=== PATIENT | female | born 1970 | race Caucasian/White ===

== ENCOUNTER 2022-11-05 17:11 | Inpatient (IN) | payer OTHER ==
[2022-11-05 17:28] VITALS: BMI 15.7
[2022-11-05] MEDS ORDERED: IBUPROFEN 400 MG TABLET (FP) PO PRN (17:57)
[2022-11-05] MEDS ORDERED: P-EPHED 60MG/TRIPROLIDI 2.5MG TABLET PO PRN (17:57)
[2022-11-05] MEDS ORDERED: BENZONATATE 200 MG CAPSULE PO PRN (17:57)
[2022-11-05] MEDS ORDERED: NALOXONE HCL 0.4 MG/ML VIAL IM PRN (17:57)
[2022-11-05] MEDS ORDERED: DICYCLOMINE HCL 10 MG CAPSULE PO PRN (17:57)
[2022-11-05] MEDS ORDERED: ONDANSETRON *ODT* 4 MG TABLET SL PRN (17:57)
[2022-11-05] MEDS ORDERED: NALOXONE HCL (KLOXXADO) 8 MG SPRAY NS PRN (17:57)
[2022-11-05] MEDS ORDERED: guaiFENesin 600 MG TABLET.ER (FP) PO PRN (17:57)
[2022-11-05] MEDS ORDERED: POLYETHYLENE GLYCOL (HEALTHYLAX) 3350 17 GM PACKET PO PRN (17:57)
[2022-11-05] MEDS ORDERED: NICOTINE POLACRILEX 2 MG GUM BUC PRN (17:57)
[2022-11-05] MEDS ORDERED: BISMUTH SUBSALICYLATE 524 MG/30 ML PO PRN (17:57)
[2022-11-05] MEDS ORDERED: MAG HYDROX/AL HYDROX/SIMETH 30 ML UNIT-DOSE CUP PO PRN (17:57)
[2022-11-05] MEDS ORDERED: LOPERAMIDE HCL 2 MG CAPSULE PO PRN (17:57)
[2022-11-05] MEDS ORDERED: MAGNESIUM HYDROX 2400MG/30ML ORAL SUSPENSION 30 ML CUP PO PRN (17:57)
[2022-11-05] MEDS ORDERED: BENZOCAINE/MENTHOL (CHLORASEPTIC ) LOZENGE MM PRN (17:57)
[2022-11-05] MEDS ORDERED: ALBUTEROL SO4 HFA INHALER IH PRN (18:00)
[2022-11-05] MEDS ORDERED: methylPREDNISolone 4 MG TABLET PO SCH (18:00)
[2022-11-05] MEDS ORDERED: cloNIDine HCL 0.1 MG TABLET PO PRN (18:01)
[2022-11-05] MEDS ORDERED: methylPREDNISolone 8 MG TABLET PO ONE (20:52)
[2022-11-05] MEDS ORDERED: MELATONIN 5 MG TABLETS PO SCH (22:00)
[2022-11-05] MEDS ORDERED: methylPREDNISolone 4 MG TABLET PO ONE (22:00)
[2022-11-05] MEDS: MONTELUKAST NA 10 MG TABLET PO SCH (23:10)
[2022-11-05] MEDS: THIAMINE HCL 100 MG TABLET (FP) PO SCH (23:11)
[2022-11-05] MEDS: METHOCARBAMOL 500 MG TABLET PO PRN (23:12)
[2022-11-05] MEDS: diazePAM 5 MG TABLET PO PRN (23:12)
[2022-11-05] MEDS: ALBUTEROL SO4 2.5/IPRATROPIUM 0.5 INH SOL 3 ML VIAL.NEB. NEB SCH (23:13)
[2022-11-05] MEDS: LIDOCAINE PATCH REMOVAL MC SCH (23:14)
[2022-11-06] MEDS: ALBUTEROL SO4 2.5/IPRATROPIUM 0.5 INH SOL 3 ML VIAL.NEB. NEB SCH ×3 (06:53→20:54)
[2022-11-06] MEDS ORDERED: methylPREDNISolone 4 MG TABLET PO ONE (10:00)
[2022-11-06] MEDS ORDERED: methaDONE HCL 10 MG TABLET (FOR DETOX USE ONLY) PO ONE (10:00)
[2022-11-06] MEDS: METHOCARBAMOL 500 MG TABLET PO PRN ×2 (10:15→17:01)
[2022-11-06] MEDS: PRENATAL VITAMINS W/ FOLIC ACID TABLET (FP) PO SCH (10:16)
[2022-11-06] MEDS: LIDOCAINE 5% TOPICAL PATCH TP SCH (10:16)
[2022-11-06] MEDS: diazePAM 5 MG TABLET PO PRN ×2 (10:17→17:01)
[2022-11-06] MEDS: NICOTINE 21 MG/24 HOURS TOPICAL PATCH TD SCH (10:23)
[2022-11-06] MEDS: IBUPROFEN 600 MG TABLET (FP) PO PRN (17:00)
[2022-11-06] MEDS: MIRTAZAPINE 15 MG TABLET (FP) PO SCH (22:24)
[2022-11-06] MEDS: NICOTINE 10 MG CARTRIDGE (INHALER) IH PRN (22:25)
[2022-11-06] MEDS: THIAMINE HCL 100 MG TABLET (FP) PO SCH (22:25)
[2022-11-06] MEDS: MONTELUKAST NA 10 MG TABLET PO SCH (22:25)
[2022-11-06] MEDS: ACETAMINOPHEN 325 MG TABLET (FP) PO PRN (22:26)
[2022-11-06] MEDS: LIDOCAINE PATCH REMOVAL MC SCH (22:47)
[2022-11-07] MEDS: ALBUTEROL SO4 2.5/IPRATROPIUM 0.5 INH SOL 3 ML VIAL.NEB. NEB SCH ×3 (08:04→16:17)
[2022-11-07] MEDS ORDERED: methylPREDNISolone 4 MG TABLET PO ONE (10:00)
[2022-11-07] MEDS: METHOCARBAMOL 500 MG TABLET PO PRN ×2 (10:17→22:01)
[2022-11-07] MEDS: diazePAM 5 MG TABLET PO PRN ×3 (10:17→22:01)
[2022-11-07] MEDS: NICOTINE 21 MG/24 HOURS TOPICAL PATCH TD SCH (10:18)
[2022-11-07] MEDS: LIDOCAINE 5% TOPICAL PATCH TP SCH (10:18)
[2022-11-07] MEDS: PRENATAL VITAMINS W/ FOLIC ACID TABLET (FP) PO SCH (10:19)
[2022-11-07] MEDS: NICOTINE 10 MG CARTRIDGE (INHALER) IH PRN (17:00)
[2022-11-07] MEDS: IBUPROFEN 600 MG TABLET (FP) PO PRN (17:43)
[2022-11-07] MEDS: ACETAMINOPHEN 325 MG TABLET (FP) PO PRN (21:07)
[2022-11-07] MEDS: MIRTAZAPINE 15 MG TABLET (FP) PO SCH (22:00)
[2022-11-07] MEDS: THIAMINE HCL 100 MG TABLET (FP) PO SCH (22:00)
[2022-11-07] MEDS: MONTELUKAST NA 10 MG TABLET PO SCH (22:00)
[2022-11-07] MEDS: LIDOCAINE PATCH REMOVAL MC SCH (22:01)
[2022-11-08 06:06] VITALS: RESP 18
[2022-11-08 08:52] VITALS: BP 129/67; PULSE 58; TEMP 96.8
[2022-11-08] MEDS ORDERED: methaDONE HCL 10 MG TABLET (FOR DETOX USE ONLY) PO ONE (10:00)
[2022-11-08] MEDS ORDERED: methylPREDNISolone 4 MG TABLET PO ONE (10:00)
[2022-11-09] MEDS ORDERED: methylPREDNISolone 4 MG TABLET PO ONE (10:00)
[2022-11-10] MEDS ORDERED: methylPREDNISolone 4 MG TABLET PO ONE (10:00)
== END 2022-11-08 10:00 | disposition home or self-care (01) | DRG 773 ==
LOC: YASAS 17:11 → Y3N 19:20
PROVIDERS: ADMIT Allergy & Immunology; ATTEND Surgery
PROC: HZ2ZZZZ Detoxification Services for Substance Abuse Treatment (ICD-10-PCS; principal; 2022-11-05)
DX: F11.23 Opioid dependence with withdrawal (principal); F10.230 Alcohol dependence with withdrawal, uncomplicated; F14.20 Cocaine dependence, uncomplicated; F17.210 Nicotine dependence, cigarettes, uncomplicated; F19.282 Other psychoactive substance dependence with psychoactive substance-induced sleep disorder; B20 Human immunodeficiency virus [HIV] disease; Z62.810 Personal history of physical and sexual abuse in childhood; Z91.410 Personal history of adult physical and sexual abuse; Z86.59 Personal history of other mental and behavioral disorders; Z88.8 Allergy status to other drugs, medicaments and biological substances
CPT/HCPCS: 0241U-QW; 36415; 71045-TC-FY; 80053; 83735; 83880; 84100; 84484; 85025; 85610; 85730; 93005; 93010; 94640; C9803-CS; G0378; U0003; U0005